=== PATIENT | male | born 1980 | race American Indian/Alaskan Native ===

== ENCOUNTER 2019-11-16 17:19 | Emergency (ER) | payer BC ==
--- NOTE | 2019-11-16 17:32 | EDM.PDOC ---
ED HPI GENERAL MEDICAL PROBLEM - General Chief Complaint: Laceration Stated Complaint: EYE INJURY LEFT Time Seen by Provider: 11/16/19 17:27 Source of Information: Reports: Patient History Limitations: Reports: No Limitations - History of Present Illness INITIAL COMMENTS - FREE TEXT/NARRATIVE: HISTORY AND PHYSICAL: History of present illness: Patient is a 39-year-old male presents to the ED with complaint of head injury. Patient states he was putting chain on a trailer when the chain came back and hit him in the face. He states he did lose consciousness for a moment. He states he was dazed afterwards. He denies visual changes, nausea, or vomiting. He is complaining of pain in his nose. Patient states last tetanus shot was 3-4 years ago. Review of systems: As per history of present illness and below otherwise all systems reviewed and negative. Past medical history: As per history of present illness and as reviewed below otherwise noncontributory. Surgical history: As per history of present illness and as reviewed below otherwise noncontributory. Social history: No reported history of drug or alcohol abuse. Family history: As per history of present illness and as reviewed below otherwise noncontributory. Physical exam: General: Patient sitting comfortably in no acute distress and nontoxic appearing HEENT: There is a 1 cm laceration just above the left eyebrow with moderate swelling. There is a superficial 1 cm abrasion to the bridge of the nose with swelling to the left side of the nose and tender to palpation. There is no septal hematoma or septal deviation and nares are patent bilaterally. normocephalic, pupils reactive, negative for conjunctival pallor or scleral icterus, mucous membranes moist, throat clear, neck supple, nontender, trachea midline. No meningeal signs. Lungs: Clear to auscultation, breath sounds equal bilaterally, chest nontender. Heart: S1S2, regular, negative for clicks, rubs, or overt murmur. Abdomen: Soft, nondistended, nontender. Negative for masses or hepatosplenomegaly. Negative for costovertebral tenderness. No rigidity, rebound , guarding. Pelvis: Stable nontender. Genitourinary: Deferred. Rectal: Deferred. Extremities: Atraumatic, negative for cords or calf pain. Neurovascular unremarkable. Neuro: Awake, alert, oriented. Cranial nerves II through XII unremarkable. Cerebellum unremarkable. Motor and sensory unremarkable throughout. Exam nonfocal. Notes: Diagnostics: Head CT w/o contrast, maxillofacial CT w/o contrast Therapeutics: [] Prescriptions: Impression: Nasal fracture, facial laceration Plan: Take antibiotic as instructed Keep the area clean and dry as discussed Follow-up with ENT Return to ED as needed as discussed Definitive disposition and diagnosis as appropriate pending reevaluation and review of above. face Pain Score (Numeric/FACES): 7 - Related Data Allergies Allergy/AdvReac Type Severity Reaction Status Date / Time No Known Allergies Allergy Verified 11/16/19 17:22 Home Meds: Home Meds . [No Known Home Meds] 11/16/19 [History] ED ROS GENERAL - Review of Systems Review Of Systems: Comprehensive ROS is negative, except as noted in HPI. ED EXAM, SKIN/RASH Exam: See Below (see dictation) ED SKIN PROCEDURES - Laceration/Wound Repair Left Head Appearance: Superficial, Subcutaneous, Linear, Clean Distal NVT: Neuro & Vascular Intact, No Tendon Injury Skin Prep: Saline Saline Irrigation (cc's): 250 Exploration/Debridement/Repair: Wound Explored, In a Bloodless Field, Explored to Base, No Foreign Material Found Closed with: Dermabond Lac/Wound length In cm: 1 Course - Vital Signs Last Recorded V/S: Last Vital Signs Temp 98.6 F 11/16/19 17:40 Pulse 67 11/16/19 17:40 Resp 18 11/16/19 17:40 BP 129/82 11/16/19 17:40 Pulse Ox 97 11/16/19 17:40 - Orders/Labs/Meds Meds: Medications Discontinued Medications Generic Name Dose Route Start Last Admin Trade Name Lorri PRN Reason Stop Dose Admin Octyl Cyanoacrylate 1 applic 11/16/19 18:18 11/16/19 18:31 Dermabond Advance TOP 11/16/19 18:19 1 applic ONETIME ONE Administration Octyl Cyanoacrylate Confirm 11/16/19 18:18 11/16/19 18:32 Dermabond Advance Administered 11/16/19 18:19 Not Given Dose 1 applic .ROUTE .STK-MED ONE Departure - Departure Time of Disposition: 18:18 Disposition: Home, Self-Care 01 Condition: Good Clinical Impression: Laceration of face, Nasal fracture - Discharge Information [facility] - Forms: ED Department Discharge Additional Instructions: The following information is given to patients seen in the emergency department who are being discharged to home. This information is to outline your options for follow-up care. We provide all patients seen in our emergency department with a follow-up referral. The need for follow-up, as well as the timing and circumstances, are variable depending upon the specifics of your emergency department visit. If you don't have a primary care physician on staff, we will provide you with a referral. We always advise you to contact your personal physician following an emergency department visit to inform them of the circumstance of the visit and for follow-up with them and/or the need for any referrals to a consulting specialist. The emergency department will also refer you to a specialist when appropriate. This referral assures that you have the opportunity for follow-up care with a specialist. All of these measure are taken in an effort to provide you with optimal care, which includes your follow-up. Under all circumstances we always encourage you to contact your private physician who remains a resource for coordinating your care. When calling for follow-up care, please make the office aware that this follow-up is from your recent emergency room visit. If for any reason you are refused follow-up, please contact the [facility] Emergency Department at and asked to speak to the emergency department charge nurse. [facility] [address] [place], [place] [id number] [place] [address] Take antibiotic as instructed Keep the area clean and dry as discussed Follow-up with ENT Return to ED as needed as discussed Sepsis Event Note - Evaluation Sepsis Screening Result: No Definite Risk - Focused Exam Vital Signs: Vital Signs Temp Pulse Resp BP Pulse Ox 11/16/19 17:40 98.6 F 67 18 129/82 97 11/16/19 17:22 95.9 F L 72 18 166/91 H 96 Date Exam was Performed: 11/16/19 Time Exam was Performed: 18:45
--- NOTE | 2019-11-16 18:10 | CT ---
Head CT Technique: Multiple axial sections through the brain were obtained. Intravenous contrast was not utilized. Comparison: No prior intracranial imaging. Findings: Ventricles along with basal cisterns and sulci over the convexities appear within normal limits for the patient's age. No abnormal parenchymal densities are seen. No evidence of intracranial hemorrhage. No midline shift or mass-effect is seen. Nasal bone fracture is seen. Soft tissue swelling is seen at the bridge of the nose and within the left frontal scalp. Small amount of soft tissue air is seen. No acute calvarial finding is seen. Visualized mastoid sinuses and paranasal sinuses show nothing acute. Impression: 1. Nasal bone fracture. Soft tissue swelling as noted above. 2. No acute intracranial abnormality is appreciated. Diagnostic code #2 This report was dictated in MDT
--- NOTE | 2019-11-16 18:15 | CT ---
CT facial bones Technique: Multiple axial sections through the facial bones were obtained. Reconstructed coronal and sagittal images were obtained. Findings: Soft tissue swelling and minimal modest soft tissue air seen within the left frontal scalp. Soft tissue swelling is also noted within the bridge of the nose. Slightly displaced and comminuted nasal bone fracture is seen. Right and left globes are symmetric. No retrobulbar abnormality is seen. No additional facial bone fracture is seen. Impression: 1. Slightly comminuted and displaced nasal bone fracture. 2. Soft tissue swelling as noted above. Diagnostic code #3 This report was dictated in MDT
[2019-11-16] MEDS ORDERED: Octyl 2-Cyanoacrylate 1 Tube ONE (18:18)
[2019-11-16] MEDS ORDERED: Octyl 2-Cyanoacrylate 1 Tube TOP ONE (18:18)
== END 2019-11-16 18:36 | disposition home or self-care (01) ==
LOC: MW.ED 17:19
DX: S02.2XXA Fracture of nasal bones, initial encounter for closed fracture (principal); S01.81XA Laceration without foreign body of other part of head, initial encounter; W22.8XXA Striking against or struck by other objects, initial encounter
CPT/HCPCS: 12011; 70450; 70486; 99283; A9270